=== PATIENT | male | born 1945 | race Caucasian/White ===

== ENCOUNTER 2017-07-18 16:43 | Inpatient (IN) | payer MEDICARE ==
[~2017-07-18] VITALS: Ht 170.2 cm; Wt 79.4 kg
--- NOTE | ~2017-07-18 | PN ---
PATIENT:JAMEEL IGLESIAS MEDICAL RECORD: [id number] LOCATION:[address] ADMISSION DATE: 07/18/17 PROGRESS NOTE DATE OF SERVICE: 07/20/2017 Progress Note Addendum CHIEF COMPLAINT: None. He is improved. I discussed this case personally with the geothermal hvac technician this morning. I have personally reviewed the x-ray images. I have personally reviewed the x-ray report. There was a large amount of contrast in the colon, particularly in the transverse colon. This was going to obscure the small bowel follow through. Also, the fact that he has had a contrast that has traveled into the colon indicates that the small-bowel obstruction has either a partial small-bowel obstruction or it is resolving. He is not having any abdominal pain. No nausea, no vomiting. I placed him on a clear liquid diet and he is tolerating clear liquid diet. Nothing aggravates. Nothing alleviates. I am going to order a KUB in the morning. If it shows a developing small-bowel obstruction or if it shows resolution, the patient is likely going to want to go back to [place], [place] where his surgeon is. It is only a [address]. He appears well enough to travel. This is a progress note addendum. For the typed portion of the progress note, please see the chart. This would include the past medical and surgical history, current medications, allergies, social history as well as family history, review of systems as described above, otherwise negative. PHYSICAL EXAMINATION: GENERAL: The patient does not appear acutely ill. He does not appear chronically ill. VITAL SIGNS: Reviewed. HEENT: Ears: External ears appear normal. Eyes: Extraocular movements are intact. NECK: Trachea is midline. CHEST: No intercostal retractions. PULMONARY: Nonlabored, no stridor. ABDOMEN: No peritonitis with movement. EXTREMITIES: No peripheral cyanosis. INTEGUMENT: No rash. PSYCHIATRIC: Normal affect. NEUROLOGIC: Nonfocal, no lethargy. The patient answers questions appropriately, moves all extremities well. BACK: No thoracic kyphosis. LYMPHATIC: No lymphangitic streaking of the exposed extremities. IMPRESSION: Resolved small-bowel obstruction. PLAN: Continued nonoperative management. KUB in the morning. TRANSINT:[id number] Voice Confirmation ID: [id number] DOCUMENT ID: [id number] PROGRESS NOTE [id number] JAMEEL IGLESIAS ROBERT MD CC: [id number] DICTATION DATE: 07/20/171945 BIT WELDER: 07/21/17 1203 DIS IN 07/21/17 [place] [id number] [place] [id number]
--- NOTE | ~2017-07-18 | HP ---
PATIENT: JAMEEL IGLESIAS MEDICAL RECORD: [id number] ACCOUNT: [id number] LOCATION:[address] : 47 ADMISSION DATE: 07/18/17 HISTORY AND PHYSICAL EXAMINATION ADDENDUM CHIEF COMPLAINT: Cramping. HISTORY OF PRESENT ILLNESS: The patient has been having some crampy abdominal pain. He told me that he had not vomited, but then he told me that he has actually vomited twice. He has had some nausea. He had a bowel movement as of a couple of days ago. The patient underwent a CT scan. It revealed some dilated loops of small bowel, mainly in the lower abdomen. This is concerning for small-bowel obstruction. The patient has undergone bilateral inguinal hernia repairs in the past and these were done laparoscopically. 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 We discussed the pathophysiology of small bowel obstructions. He has had no history of malignancy. No history of recurrent hernia. I note no recurrent hernia upon today's examination. For the typed portion of the history and physical, please see the chart. This would include the past medical and surgical history, current medications, allergies, social history as well as family history. REVIEW OF SYSTEMS: Currently, no chest pain, no shortness of breath. There is some lower abdominal pain. REVIEW OF SYSTEMS: Negative other than as is described above. PHYSICAL EXAMINATION: GENERAL: The patient does not appear acutely ill. He does not appear chronically ill. VITAL SIGNS: Reviewed. EARS: External ears appear normal. EYES: Extraocular movements are intact. NECK: Trachea is midline. CHEST: No intercostal retractions. PULMONARY: Nonlabored, no stridor. ABDOMEN: Nontender. GENITOURINARY: No inguinal hernias are noted. PSYCHIATRIC: Normal affect. INTEGUMENT: No rash. BACK: No thoracic kyphosis. NEUROLOGIC: Answers questions appropriately, moves all extremities well. PSYCHIATRIC: Normal affect. PLAN: Small bowel obstruction. PLAN: I will try to treat him without a nasogastric tube for now. I will plan for small bowel follow through in the morning, which may be diagnostic as well as therapeutic. I have asked him to ambulate frequently. TRANSINT:[id number] Voice Confirmation ID: [id number] DOCUMENT ID: [id number] HISTORY AND PHYSICAL [id number] JAMEEL IGLESIAS ROBERT MD at 1019 CC: [id number] DICTATION DATE: 07/19/172011 NAVAL ENGINEER: 07/19/17 2253 ADM IN [place] [id number] [place] [id number]
[~2017-07-18 16:43] MED LIST: GLUCOSAMINE HC500 MG PO
[2017-07-18 17:24] LABS: BASOPHILS 0.1 % (0-2); EOSINOPHILS 0.6 % (0-7); HEMATOCRIT 43.9 % (42.0-54.0); LYMPHOCYTES 12.6 % (15-50); MCH 31.8 pg (26.0-34.0); MCHC 34.2 g/dL (31.0-37.0); MEAN PLATELET VOLUME 8.8 fL (7.4-10.4); MONOCYTES 5.1 % (2-11); NEUTROPHILS 81.6 % (40-80); PLATELET COUNT 193 10x3/uL (130-400); RBC 4.72 10x6/uL (4.20-6.10); RDW 12.8 % (11.5-14.5); WBC 8.9 10x3/uL (4.8-10.8)
[2017-07-18 17:29] LABS: INR 0.99 (0.85-1.17); PROTIME 12.7 SECONDS (11.6-15.0)
[2017-07-18 17:33] LABS: ALBUMIN 3.8 g/dL (3.4-5.0); ALKALINE PHOSPHATASE 78 U/L (46-116); ALT (SGPT) 26 U/L (10-68); BILIRUBIN - TOTAL 0.46 mg/dL (0.2-1.3); CALC OSMOLALITY 280 mosm/kg (275-300); CALCIUM 9.2 mg/dL (8.5-10.1); CARBON DIOXIDE 28.7 mmol/L (21.0-32.0); CHLORIDE - SERUM 103 mmol/L (98-107); CREATININE - SERUM 0.9 mg/dL (0.6-1.3); GLUCOSE 113 mg/dL (74-106); POTASSIUM - SERUM 3.6 mmol/L (3.5-5.1); PROTEIN - SERUM 7.5 g/dL (6.4-8.2); SODIUM 140 mmol/L (136-145); UREA NITROGEN 15 mg/dL (7-18); eGFR NON AFRICAN AMERICAN 88 mL/min (90-120)
[2017-07-18 17:40] LABS: APPEARANCE CLEAR (CLEAR); BILIRUBIN NEGATIVE (NEGATIVE); COLOR YELLOW (YELLOW); GLUCOSE NEGATIVE (NEGATIVE); KETONE SMALL mg/dL (NEGATIVE); NITRITE NEGATIVE (NEGATIVE); PROTEIN NEGATIVE (NEGATIVE); UROBILINOGEN NORMAL (NORMAL)
[2017-07-18 17:42] LABS: AMYLASE - SERUM 60 U/L (25-115); CREATINE KINASE 64 UL (21-232); LIPASE 138 U/L (73-393); PRO BNP 34 pg/mL (0-125)
[2017-07-18 17:45] LABS: TROPONIN-I < 0.017 ng/mL (0.000-0.060)
[2017-07-18 23:55] VITALS: BP 105/73; BMI 27.4
[2017-07-18] MEDS ORDERED: ZOCOR20 MG PO (23:58)
[2017-07-18] MEDS ORDERED: FLOMAX0.4 MG PO (23:58)
[2017-07-18] MEDS ORDERED: PROSCAR5 MG PO (23:58)
[2017-07-18] MEDS ORDERED: MULTIPLE VITAMI1 TA1 PO (23:59)
[2017-07-18] MEDS ORDERED: NORVASC5 MG PO (23:59)
[2017-07-19] VITALS: BP 105/73
[2017-07-19] MEDS ORDERED: OCUVITE TABLET1 TA1 PO (00:01)
[2017-07-19] MEDS ORDERED: NAPROSYN500 MG PO (00:01)
[2017-07-19] MEDS ORDERED: IBUPROFEN600 MG PO (00:02)
[2017-07-19 04:00] VITALS: BP 103/62
[2017-07-19 06:06] LABS: BASOPHILS 0.1 % (0-2); EOSINOPHILS 2.1 % (0-7); HEMATOCRIT 38.6 % (42.0-54.0); HEMOGLOBIN 12.8 g/dL (13.5-17.5); IMMATURE GRANULOCYTES 0.1 % (0-5); LYMPHOCYTES 30.9 % (15-50); MCH 31.3 pg (26.0-34.0); MCHC 33.2 g/dL (31.0-37.0); MCV 94.4 fL (80.0-100.0); MEAN PLATELET VOLUME 8.9 fL (7.4-10.4); MONOCYTES 10.6 % (2-11); NEUTROPHILS 56.2 % (40-80); PLATELET COUNT 175 10x3/uL (130-400); RBC 4.09 10x6/uL (4.20-6.10); RDW 13.2 % (11.5-14.5); WBC 6.7 10x3/uL (4.8-10.8)
[2017-07-19 06:22] LABS: ALBUMIN 2.9 g/dL (3.4-5.0); ALKALINE PHOSPHATASE 58 U/L (46-116); ALT (SGPT) 20 U/L (10-68); CALC OSMOLALITY 281 mosm/kg (275-300); CALCIUM 8.1 mg/dL (8.5-10.1); CHLORIDE - SERUM 108 mmol/L (98-107); CREATININE - SERUM 0.7 mg/dL (0.6-1.3); GLUCOSE 93 mg/dL (74-106); POTASSIUM - SERUM 3.7 mmol/L (3.5-5.1); PROTEIN - SERUM 5.7 g/dL (6.4-8.2); SODIUM 142 mmol/L (136-145); eGFR NON AFRICAN AMERICAN > 90 mL/min (90-120)
[2017-07-19 06:24] LABS: UREA NITROGEN 10 mg/dL (7-18)
[2017-07-19 08:42] VITALS: BP 148/76
[2017-07-19 11:43] VITALS: BP 159/81
[2017-07-19 14:29] VITALS: Ht 170.2 cm; Wt 79.4 kg
[2017-07-19 17:20] VITALS: BP 157/74
[2017-07-19 20:00] VITALS: BP 132/70
[2017-07-20 04:00] VITALS: BP 132/72
[2017-07-20 05:53] LABS: BASOPHILS 0.3 % (0-2); EOSINOPHILS 2.3 % (0-7); HEMATOCRIT 41.1 % (42.0-54.0); HEMOGLOBIN 13.6 g/dL (13.5-17.5); IMMATURE GRANULOCYTES 0.2 % (0-5); LYMPHOCYTES 28.7 % (15-50); MCH 31.1 pg (26.0-34.0); MCHC 33.1 g/dL (31.0-37.0); MCV 94.1 fL (80.0-100.0); MEAN PLATELET VOLUME 9.1 fL (7.4-10.4); MONOCYTES 5.9 % (2-11); NEUTROPHILS 62.6 % (40-80); PLATELET COUNT 166 10x3/uL (130-400); RBC 4.37 10x6/uL (4.20-6.10); WBC 6.6 10x3/uL (4.8-10.8)
[2017-07-20 06:29] LABS: ALBUMIN 3.2 g/dL (3.4-5.0); ALKALINE PHOSPHATASE 66 U/L (46-116); ALT (SGPT) 20 U/L (10-68); CALC OSMOLALITY 278 mosm/kg (275-300); CALCIUM 8.1 mg/dL (8.5-10.1); CARBON DIOXIDE 22.6 mmol/L (21.0-32.0); CHLORIDE - SERUM 106 mmol/L (98-107); CREATININE - SERUM 0.6 mg/dL (0.6-1.3); GLUCOSE 82 mg/dL (74-106); PHOSPHOROUS 2.7 mg/dL (2.5-4.9); POTASSIUM - SERUM 3.3 mmol/L (3.5-5.1); PROTEIN - SERUM 6.4 g/dL (6.4-8.2); SODIUM 141 mmol/L (136-145); UREA NITROGEN 9 mg/dL (7-18); eGFR NON AFRICAN AMERICAN > 90 mL/min (90-120)
[2017-07-20 11:53] VITALS: BP 131/74
[2017-07-20 16:02] VITALS: BP 222/78
[2017-07-20 20:00] VITALS: BP 119/75
[2017-07-21] VITALS: BP 152/75
[2017-07-21 04:00] VITALS: BP 146/70
[2017-07-21 08:05] VITALS: BP 180/92
[2017-07-21 11:21] VITALS: BP 157/92
== END 2017-07-21 12:23 | disposition home or self-care (01) | DRG 390 ==
LOC: D.ER 16:43 → D.EDHOLD 21:51 → D.M2 22:31
PROVIDERS: Family Medicine; Nurse Practitioner Family; Surgery
DX: K56.609 Unspecified intestinal obstruction, unspecified as to partial versus complete obstruction (principal); I10 Essential (primary) hypertension; Z98.890 Other specified postprocedural states